=== PATIENT | female | born 1940 | race Caucasian/White ===

== ENCOUNTER → 2017-04-13 | Outpatient (CLI) | payer MEDICARE, OTHER ==
[2017-04-13] MEDS: BARIUM SULFATE 40% (APPLE) 148 GM PWD. PO (11:20)
== END | disposition home or self-care (01) ==
LOC: RAD 10:31
DX: R13.10 Dysphagia, unspecified (principal); R47.02 Dysphasia; R05 Cough
CPT/HCPCS: 74230; 92526-GN; 92611-GN; G8996-CI-GN; G8997-CI-GN; G8998-CI-GN